=== PATIENT | male | born 1950 | race Caucasian/White ===

== ENCOUNTER 2020-04-30 05:07 | Observation (INO) ==
[2020-04-30] MEDS ORDERED: Naloxone 0.4 MG/ML INJ IVP PRN (11:29)
[2020-04-30] MEDS ORDERED: D5% in Water 1,000 ML IVC PRN (11:29)
[2020-04-30] MEDS ORDERED: Dextrose Gel 15 GM/37.5 ML TUBE PO PRN ×2 (11:29)
[2020-04-30] MEDS ORDERED: *HR* Dextrose 50 % in Water (Vial) 50 ML VIAL IVP PRN (11:29)
[2020-04-30] MEDS ORDERED: Ipratropium/Albuterol Neb 3 ML IH PRN (12:08)
[2020-04-30 12:45] LABS: Basophils # 0.1 K/mcL (0.0-0.2); Basophils % 0.8 %; Eosinophils # 0.4 K/mcL (0.0-0.6); Eosinophils % 4.9 %; Hematocrit 25.3 % (37.5-50.1); Hemoglobin 7.6 g/dL (12.9-16.9); Lymphocytes # 1.1 K/mcL (0.6-4.6); Lymphocytes % 12.2 %; Mean Corpuscular Hemoglobin 23.8 pg (28.0-33.3); Mean Corpuscular Volume 79.1 fL (83.0-100.0); Mean Platelet Volume 10.9 fL (9.4-12.4); Monocytes % 10.8 %; Neutrophils # 6.2 K/mcL (1.6-8.9); Nucleated Red Blood Cells 0.3 /100 WBC (0); Platelet Count 154 K/mcL (140-400); Red Cell Distribution Width 16.4 % (11.5-14.5); Segmented Neutrophils % 70.3 %; White Blood Count 8.8 K/mcL (4.3-11.1)
[2020-04-30 13:05] LABS: BUN/Creatinine Ratio 20 (6-26); Blood Urea Nitrogen 29 mg/dL (8-23); Calcium 8.6 mg/dL (8.6-10.3); Carbon Dioxide 31 mEq/L (23-29); Chloride 90 mEq/L (98-107); Glucose 464 mg/dL (70-105); Osmolality,Calculated 296 (280-300); Sodium 130 mEq/L (136-145); Troponin I < 0.03 ng/mL (< 0.04); eGFR For African Americans 59 (> 60); eGFR For Non-African Americans 49 (> 60)
[2020-04-30] MEDS ORDERED: Furosemide 40 MG/4 ML VIAL IVP ONE (13:22)
[2020-04-30] MEDS: Insulin LISPRO 300 UNITS/3 ML VIAL SUBQ SCH ×2 (14:01→17:34)
[2020-04-30] MEDS: Pantoprazole 40 MG VIAL IVP SCH (17:38)
[2020-04-30] MEDS: Fluticasone Propionate Nasal 50 MCG/SPRAY BOTTLE NS SCH (18:15)
[2020-04-30] MEDS: Insulin DETEMIR 100 UNIT/ML X5UNITS SUBQ SCH (21:13)
[2020-04-30] MEDS: Ondansetron 4 MG/2 ML VIAL IVP PRN (21:25)
[2020-04-30] MEDS: Pregabalin 75 MG CAPSULE PO SCH (23:30)
[2020-05-01] MEDS: Insulin LISPRO 300 UNITS/3 ML VIAL SUBQ SCH ×4 (00:17→16:54)
[2020-05-01] MEDS: Ondansetron 4 MG/2 ML VIAL IVP PRN ×2 (04:44→15:25)
[2020-05-01 05:47] LABS: Basophils # 0.1 K/mcL (0.0-0.2); Basophils % 0.9 %; Eosinophils # 0.5 K/mcL (0.0-0.6); Eosinophils % 5.7 %; Hematocrit 27.7 % (37.5-50.1); Hemoglobin 8.1 g/dL (12.9-16.9); Immature Granulocytes % 0.6 % (0-4); Lymphocytes # 1.4 K/mcL (0.6-4.6); Lymphocytes % 15.8 %; Mean Corpuscular HGB Conc 29.2 g/dL (31.6-35.5); Mean Corpuscular Hemoglobin 23.7 pg (28.0-33.3); Mean Platelet Volume 10.5 fL (9.4-12.4); Monocytes % 11.7 %; Neutrophils # 5.8 K/mcL (1.6-8.9); Nucleated Red Blood Cells 0.2 /100 WBC (0); Platelet Count 154 K/mcL (140-400); Red Blood Count 3.42 M/mcL (4.19-5.50); Segmented Neutrophils % 65.3 %; White Blood Count 8.9 K/mcL (4.3-11.1)
[2020-05-01 06:05] LABS: BUN/Creatinine Ratio 20 (6-26); Blood Urea Nitrogen 28 mg/dL (8-23); Calcium 8.4 mg/dL (8.6-10.3); Carbon Dioxide 33 mEq/L (23-29); Chloride 92 mEq/L (98-107); Glucose 236 mg/dL (70-105); Osmolality,Calculated 289 (280-300); Potassium 3.8 mEq/L (3.5-5.1); Sodium 133 mEq/L (136-145); eGFR For African Americans > 60 (> 60); eGFR For Non-African Americans 51 (> 60)
[2020-05-01] MEDS: Pantoprazole 40 MG VIAL IVP SCH ×2 (06:11→17:16)
[2020-05-01] MEDS: Fluticasone Propionate Nasal 50 MCG/SPRAY BOTTLE NS SCH (08:27)
[2020-05-01] MEDS: Pregabalin 75 MG CAPSULE PO SCH ×3 (08:27→20:48)
[2020-05-01] MEDS: Insulin DETEMIR 100 UNIT/ML X5UNITS SUBQ SCH ×2 (08:31→20:48)
[2020-05-01] MEDS ORDERED: Lidocaine -MPF 2% 2 ML VIAL ONE (13:38)
[2020-05-01] MEDS ORDERED: *HR* Propofol 200 MG/20 ML VIAL IVP ONE (13:39)
[2020-05-01] MEDS ORDERED: *HR* Midazolam HCl 2 MG/2 ML VIAL ONE (13:41)
[2020-05-01] MEDS: DilTIAZem CD (24hr) 120 MG CAP.ER.24H PO SCH (16:52)
[2020-05-01] MEDS: Acetaminophen 325 MG TABLET PO PRN (18:09)
[2020-05-01] MEDS ORDERED: *HR* Metoprolol 5 MG/5 ML VIAL IVP ONE (20:39)
[2020-05-01] MEDS: Budesonide/Formoterol 160/4.5 1 PUFF INH IH SCH (22:37)
[2020-05-02] MEDS: Acetaminophen 325 MG TABLET PO PRN ×2 (01:47→08:06)
[2020-05-02 03:53] LABS: Mean Corpuscular Volume 83.7 fL (83.0-100.0)
[2020-05-02 03:54] LABS: Hematocrit 27.2 % (37.5-50.1); Hemoglobin 7.6 g/dL (12.9-16.9); Mean Corpuscular HGB Conc 27.9 g/dL (31.6-35.5); Mean Corpuscular Hemoglobin 23.4 pg (28.0-33.3); Mean Platelet Volume 11.1 fL (9.4-12.4); Platelet Count 162 K/mcL (140-400); Red Blood Count 3.25 M/mcL (4.19-5.50)
[2020-05-02 03:59] LABS: Potassium 4.1 mEq/L (3.5-5.1)
[2020-05-02] MEDS: Pantoprazole 40 MG VIAL IVP SCH (05:27)
[2020-05-02] MEDS: Budesonide/Formoterol 160/4.5 1 PUFF INH IH SCH (07:38)
[2020-05-02] MEDS: DilTIAZem CD (24hr) 120 MG CAP.ER.24H PO SCH (07:55)
[2020-05-02] MEDS: Pregabalin 75 MG CAPSULE PO SCH (07:56)
[2020-05-02] MEDS: Insulin LISPRO 300 UNITS/3 ML VIAL SUBQ SCH ×2 (07:57→11:20)
[2020-05-02] MEDS: Fluticasone Propionate Nasal 50 MCG/SPRAY BOTTLE NS SCH (08:07)
[2020-05-02] MEDS: Insulin DETEMIR 100 UNIT/ML X5UNITS SUBQ SCH (08:10)
[2020-05-02 10:04] LABS: Hematocrit 26.6 % (37.5-50.1); Hemoglobin 7.7 g/dL (12.9-16.9)
[2020-05-02 11:30] VITALS: BP 110/63
== END 2020-05-02 13:07 | disposition home health service (06) ==
LOC: 2NENU → SUATTDRO 09:16 → 2NENU 18:14
PROVIDERS: ADMIT Internal Medicine; ATTEND Student in an Organized Health Care Education/Training Program